=== PATIENT | male | born 1975 | race Caucasian/White ===

== ENCOUNTER 2019-11-05 15:01 | Emergency (ER) | payer SELFPAY ==
[2019-11-05] MEDS ORDERED: Albuterol/Ipratropium 3.0-0.5 MG/3 ML Neb Soln NEB ONE (15:03)
--- NOTE | 2019-11-05 15:28 | EDM.PDOC ---
ED HPI GENERAL MEDICAL PROBLEM - General Chief Complaint: Respiratory Problem Stated Complaint: ASTHMA ATTACK Time Seen by Provider: 11/05/19 15:27 Source of Information: Reports: Patient History Limitations: Reports: No Limitations - History of Present Illness INITIAL COMMENTS - FREE TEXT/NARRATIVE: Patient is a 44-year-old male with significant past medical history of asthma presenting with chief complaint of acute onset of shortness of breath. Patient states he was working at his computer when he suddenly felt tightness in his chest. Patient states symptoms are similar to prior asthma exacerbations. Patient states he gets asthma exacerbations very infrequently and his last 1 was several years ago. Patient states he does not have an albuterol inhaler to use and therefore came in strict trip to the emergency department. Patient denies any fevers, cough, chest pain, lower extremity swelling, recent illnesses. Patient has never been admitted to the hospital for asthma symptoms are only mild. Seems to make his symptoms better or worse. In addition to that documented in the HPI above, the additional ROS was obtained : Constitutional: Denies fevers or chills Eyes: Denies vision changes ENMT: Denies sore throat CV: Denies chest pain Resp: Per HPI GI: Denies vomiting or diarrhea : Denies painful urination MSK: Denies recent trauma Skin: Denies new rashes Neuro: Denies new numbness or tingling or weakness Endocrine: Denies unexpected weight loss Heme: Denies bleeding disorders I have reviewed the triage vital signs Const: Well nourished, well developed, appears stated age Eyes: PERRL, no conjunctival injection HENT: NCAT, Neck supple without meningismus CV: RRR, Warm, well-perfused extremities RESP: Mildly tachypneic with diffuse bilateral wheezes. Still speaking full sentences. Skin: Warm, dry. No rashes Neuro: Alert, data control clerk II-XII grossly intact. Sensation and motor function of extremities grossly intact. Psych: Appropriate mood and affect Assessment and plan Patient is 44-year-old male presenting with asthma exacerbation. Patient has good improvement of lung exam after 1 nebulizer treatment. Patient given steroids in the emergency department. Patient saturating at 96% upon time of discharge. At this point, I think symptoms are consistent with asthma exacerbation given rapid onset and rapid improvement. I do not feel that this is related to pulmonary embolism or pneumonia or pneumothorax. Patient will be discharged with steroids as well as albuterol inhaler. Patient feels much improved and wishes to go home. All questions addressed and answered. Patient agrees with plan. Patient given strict return precautions. - Related Data Allergies Allergy/AdvReac Type Severity Reaction Status Date / Time No Known Allergies Allergy Verified 11/05/19 15:07 Home Meds: Home Meds Albuterol Sulfate [Proventil Hfa] 6.7 gm IH TID #1 hfa.aer.ad 11/05/19 [Rx] predniSONE [Prednisone] 40 mg PO DAILY 4 Days #8 tablet 11/05/19 [Rx] Past Medical History HEENT History: Reports: None Cardiovascular History: Reports: None Respiratory History: Reports: Asthma Gastrointestinal History: Reports: None Genitourinary History: Reports: None Musculoskeletal History: Reports: None Neurological History: Reports: None Psychiatric History: Reports: None Endocrine/Metabolic History: Reports: None Hematologic History: Reports: None Immunologic History: Reports: None Oncologic (Cancer) History: Reports: None Dermatologic History: Reports: None - Infectious Disease History Infectious Disease History: Reports: Chicken Pox - Past Surgical History Head Surgeries/Procedures: Reports: None HEENT Surgical History: Reports: None Cardiovascular Surgical History: Reports: None Respiratory Surgical History: Reports: None GI Surgical History: Reports: None Male Surgical History: Reports: None Endocrine Surgical History: Reports: None Neurological Surgical History: Reports: None Musculoskeletal Surgical History: Reports: None Oncologic Surgical History: Reports: None Dermatological Surgical History: Reports: None Social & Family History - Family History Family Medical History: Noncontributory - Tobacco Use Smoking Status *Q: Never Smoker Second Hand Smoke Exposure: No - Caffeine Use Caffeine Use: Reports: None - Recreational Drug Use Recreational Drug Use: No ED ROS GENERAL - Review of Systems Review Of Systems: See Below ED EXAM, GENERAL - Physical Exam Exam: See Below Course - Vital Signs Last Recorded V/S: Last Vital Signs Temp 35.7 C 11/05/19 15:08 Pulse 96 11/05/19 15:46 Resp 18 11/05/19 15:46 BP 117/75 11/05/19 15:46 Pulse Ox 92 L 11/05/19 15:46 - Orders/Labs/Meds Orders: Active Orders 24 hr Category Date Time Status RT Aerosol Therapy [RC] ASDIRECTED Care 11/05/19 15:03 Active Meds: Medications Discontinued Medications Generic Name Dose Route Start Last Admin Trade Name Freq PRN Reason Stop Dose Admin Albuterol/Ipratropium 3 ml 11/05/19 15:03 11/05/19 15:07 Duoneb 3.0-0.5 Mg/3 Ml NEB 11/05/19 15:04 3 ml ONETIME ONE Administration Prednisone 60 mg 11/05/19 15:45 11/05/19 15:47 Prednisone PO 11/05/19 15:46 60 mg ONETIME ONE Administration Departure - Departure Time of Disposition: 14:45 Disposition: Home, Self-Care 01 Clinical Impression: Asthma exacerbation - Discharge Information Prescriptions: Albuterol Sulfate [Proventil Hfa] 6.7 gm IH TID #1 hfa.aer.ad predniSONE [Prednisone] 40 mg PO DAILY 4 Days #8 tablet Instructions: Asthma, Adult, [id number] Forms: ED Department Discharge Additional Instructions: The following information is given to patients seen in the emergency department who are being discharged to home. This information is to outline your options for follow-up care. We provide all patients seen in our emergency department with a follow-up referral. The need for follow-up, as well as the timing and circumstances, are variable depending upon the specifics of your emergency department visit. If you don't have a primary care physician on staff, we will provide you with a referral. We always advise you to contact your personal physician following an emergency department visit to inform them of the circumstance of the visit and for follow-up with them and/or the need for any referrals to a consulting specialist. The emergency department will also refer you to a specialist when appropriate. This referral assures that you have the opportunity for follow-up care with a specialist. All of these measure are taken in an effort to provide you with optimal care, which includes your follow-up. Under all circumstances we always encourage you to contact your private physician who remains a resource for coordinating your care. When calling for follow-up care, please make the office aware that this follow-up is from your recent emergency room visit. If for any reason you are refused follow-up, please contact the [facility] Emergency Department at and asked to speak to the emergency department charge nurse. Sepsis Event Note - Evaluation Sepsis Screening Result: No Definite Risk - Focused Exam Vital Signs: Vital Signs Temp Pulse Resp BP Pulse Ox 11/05/19 15:46 96 18 117/75 92 L 11/05/19 15:08 35.7 C 104 H 18 153/93 H 96 Date Exam was Performed: 11/05/19 Time Exam was Performed: 17:46 - My Orders Last 24 Hours: My Active Orders 11/05/19 15:03 RT Aerosol Therapy [RC] ASDIRECTED - Assessment/Plan Last 24 Hours: My Active Orders 11/05/19 15:03 RT Aerosol Therapy [RC] ASDIRECTED
[2019-11-05] MEDS ORDERED: predniSONE 20 MG Tab PO ONE (15:45)
[2019-11-06] MEDS ORDERED: predniSONE 20 MG Tab PO ONE (15:28)
== END 2019-11-05 15:56 | disposition home or self-care (01) ==
LOC: MW.ED 15:01
DX: J45.901 Unspecified asthma with (acute) exacerbation (principal)
CPT/HCPCS: 94640; 99284; A9270; 99283; J7620-GY